=== PATIENT | female | born 1965 | race Caucasian/White ===

== ENCOUNTER 2019-02-22 10:31 | Emergency (ER) | payer MEDICAID ==
[~2019-02-22] VITALS: Ht 160 cm; Wt 73.9 kg
[2019-02-22 10:45] VITALS: Ht 160 cm; Wt 73.9 kg
[2019-02-22 11:51] LABS: BASOPHIL % 0.3 % (0-2); PLATELET COUNT 275 x10^3mcL (130-400)
[2019-02-22 12:07] LABS: CALCIUM 8.5 mg/dL (8.5-10.1); CARBON DIOXIDE 28.7 mmol/L (21-32); CHLORIDE SERUM 104 mmol/L (98-107); CREATININE SERUM 0.5 mg/dL (0.6-1.0); GFR1 > 60 mL/min; GLUCOSE SERUM 96 mg/dL (74-106); SODIUM SERUM 140 mmol/L (136-145)
[2019-02-22 12:19] LABS: ALBUMIN 3.5 g/dL (3.4-5.0); ALKALINE PHOSPHATASE 156 U/L (46-116); ALT/SGPT 44 U/L (14-59); AST/SGOT 26 U/L (15-37); BILIRUBIN TOTAL 0.58 mg/dL (0.20-1.00); CHOLESTEROL 168 mg/dL (<200); HDL CHOLESTEROL 41 mg/dL (40-60); LIPASE 88 IU/L (73-393); MAGNESIUM 1.9 mg/dL (1.8-2.4); T4(THYROXINE) 10.4 ug/dL (4.7-13.3); TOTAL PROTEIN, SERUM 7.9 g/dL (6.4-8.2)
[2019-02-22 12:27] LABS: microscopic required? YES; urine erythrocyte 3+ (NEGATIVE)
[2019-02-22 12:56] LABS: AMPHETAMINE QUAL UR NONE DETECTED (See below)
[2019-02-22 15:43] VITALS: BP 156/72
== END 2019-02-22 15:43 | disposition home or self-care (01) ==
LOC: ED 10:31
PROVIDERS: Emergency Medicine
DX: R42 Dizziness and giddiness (principal); M54.5 Low back pain; F11.20 Opioid dependence, uncomplicated
CPT/HCPCS: 82962; J7030; J8597